=== PATIENT | female | born 1975 | race Caucasian/White ===

== ENCOUNTER 2016-10-25 16:18 | Emergency (ER) | payer SELFPAY ==
[~2016-10-25] VITALS: Ht 170.2 cm; Wt 55.0 kg
[2016-10-25] MEDS ORDERED: IBUP-2030 PO (16:38)
[2016-10-25] MEDS ORDERED: NIFEDIPINE XL 30MG TAB PO ONE (17:45)
[2016-10-25] MEDS ORDERED: ACETAMINOPHEN WITH CODEINE 300/30MG TABLET PO ONE (17:45)
[2016-10-25 18:05] VITALS: BP 125/71
== END 2016-10-25 18:54 | disposition home or self-care (01) ==
LOC: ER 17:52
DX: S62.101A Fracture of unspecified carpal bone, right wrist, initial encounter for closed fracture (principal); X58.XXXA Exposure to other specified factors, initial encounter; Y93.89 Activity, other specified; Y92.89 Other specified places as the place of occurrence of the external cause; Y99.8 Other external cause status; Z90.49 Acquired absence of other specified parts of digestive tract
CPT/HCPCS: 29125; 99283